=== PATIENT | female | born 1945 | race Caucasian/White ===

== ENCOUNTER → 2019-09-27 10:55 | Outpatient (BNVA) | payer MEDICARE, MEDICAID, SELFPAY | PROVIDERS: Family Provider Registered Nurse; Visit Provider Registered Nurse | DX: I10 Essential (primary) hypertension (principal); E78.5 Hyperlipidemia, unspecified | CPT/HCPCS: 80053; 80061; 81000; 84443; 85025 ==

== ENCOUNTER → 2019-09-29 09:25 | Outpatient (BNVA) | payer MEDICARE, MEDICAID, SELFPAY | PROVIDERS: Family Provider Registered Nurse; Visit Provider Registered Nurse | DX: R31.9 Hematuria, unspecified (principal) | CPT/HCPCS: 80053; 87077; 87086; 87186 ==

== ENCOUNTER → 2019-09-30 14:19 | Outpatient (BNVA) | payer MEDICARE, MEDICAID, SELFPAY | PROVIDERS: Family Provider Registered Nurse; Visit Provider Registered Nurse | DX: R31.9 Hematuria, unspecified (principal) | CPT/HCPCS: 88112 ==

== ENCOUNTER 2019-10-04 07:56 | Outpatient (CLI) | payer MEDICARE, MEDICAID, SELFPAY ==
--- NOTE | 2019-10-04 08:00 | USCV_ITS ---
Stan Shruthi Age: 73 Gender: F : 1945 Exam Date: 10/04/2019 08:07 Ordering Phys: Karissa Denton MD ([email or web address]) Technologist: Laura Patel [place] [facility] [place]: STENOSIS Risk Factors: Previous Vascular Surgery: Right Brachial BP: / Left Brachial BP: / Right Left Velocity (cm/s) Spectral Plaque Velocity (cm/s) Spectral Plaque Syst/Diast Broadening Syst/Diast Broadening 79.40/ 8.80 Prox CCA 73.70 / 7.90 47.40/ 7.00 Mid CCA 65.10 / 8.90 39.60/ 11.70 Distal CCA 39.60 / 9.60 111.10/17.30 Prox ICA 47.10 / 12.80 143.20/17.30 Mid ICA 48.20 / 12.80 81.80/ 13.20 Distal ICA 59.80 / 11.50 128.60 ECA 106.00 3.02 ICA/CCA 0.92 Antegrade Vertebral Antegrade 33.80/ 7.00 cm/s 49.00/ 9.20 cm/s Tri Subclavian Bi 103.5 102.6 0 0 FINDINGS Moderate to heavy heterogeneous plaques at the right bifurcation and proximal internal carotid artery Moderate heterogeneous plaques of the left bifurcation and proximal internal carotid artery Intimal thickening and minimal plaques in the common carotid arteries bilaterally. Antegrade flow in the vertebral arteries bilaterally. Normal Doppler flow velocities in the external carotid arteries bilaterally CONCLUSIONS Moderate to heavy heterogeneous plaques at the right bifurcation and proximal internal carotid arterywith velocity elevation consistent with 50-79% stenosis. Moderate heterogeneous plaques at the left bifurcation and proximal internal carotid artery Compared to the previous study from 07/16/2018, there may not be a significant change Dr Madalyn Alegria MD [facility] (Electronically Signed) Final Date: 04 Oct 2019 19:19 S
== END 2019-10-04 07:57 | disposition home or self-care (01) ==
PROVIDERS: PCP Registered Nurse; Visit Provider Internal Medicine Cardiovascular Disease
DX: I65.23 Occlusion and stenosis of bilateral carotid arteries (principal)
CPT/HCPCS: 93880

== ENCOUNTER → 2019-10-07 09:06 | Outpatient (BNVA) | payer MEDICARE, MEDICAID, SELFPAY | PROVIDERS: PCP Registered Nurse; Visit Provider Registered Nurse | DX: R31.0 Gross hematuria (principal); N39.0 Urinary tract infection, site not specified; A49.9 Bacterial infection, unspecified; I10 Essential (primary) hypertension | CPT/HCPCS: 81000 ==

== ENCOUNTER 2019-10-13 10:03 | Outpatient (CLI) | payer MEDICARE, MEDICAID, SELFPAY ==
[2019-10-13] MEDS: iohexol 350 mg/mL 100 mL Btl IV (10:37)
--- NOTE | 2019-10-13 11:00 | CT_ITS ---
WS: [id number] CTA NECK TECHNIQUE: Contrast enhanced CTA of the neck with coronal and sagittal reformatted images and maximum intensity projection (MIP) images. NASCET criteria utilized. CLINICAL INFORMATION: Abnormal Carotid US COMPARISON: Ultrasound October 04, 2019 DLP: 894.[address] scans at [facility] use at least one of these dose optimization techniques: automat ed exposure control; mA and/or kV adjustment per patient size (includes targeted exams where dose is matched to clinical indication); or iterative reconstruction. FINDINGS: RIGHT: Right common carotid artery is patent. Moderate atheromatous disease right carotid bulb extend ing into the ICA with right proximal ICA stenosis measuring approximately 52%. Calcified eccentric at heromatous plaque. Right ICA is patent to the skull base. LEFT: Left common carotid artery is patent. Mild calcified atheromatous disease left carotid bulb ext ending into the ICA with no flow-limiting stenosis. Left ICA is patent to the skull base. Left ECA is patent. Both vertebral arteries are patent. Right dominant vertebral artery. Basilar artery is patent. Normal vascularity to the BUNDLE PACKER territory bilaterally. Both ICAs are patent at the skull base. Cavernous carotid calcification. Normal vascularity to the AC A and proximal MCA territory where visualized. Lung apices are well aerated. Prior sternotomy. Thyroi d gland appears normal. Normal parapharyngeal fat. Parotid glands are normal in appearance. Normal manriquez bmandibular glands. Supraglottic and glottic airway are patent. Moderate spondylitic changes cervical spine. CT/CT angio neck [id number] IMPRESSION: 1. Right ICA stenosis measuring 52%. 2. No significant left ICA stenosis. 3. Proximal [place] of Baez appears normal. 4. Right dominant vertebral artery. Smaller but patent left vertebral artery.
== END 2019-10-13 10:04 | disposition home or self-care (01) ==
LOC: RADWPI 10:10
PROVIDERS: PCP Registered Nurse; Visit Provider Internal Medicine Cardiovascular Disease
DX: I77.9 Disorder of arteries and arterioles, unspecified (principal); I65.21 Occlusion and stenosis of right carotid artery
CPT/HCPCS: 70498; Q9967

== ENCOUNTER → 2020-02-22 14:47 | Outpatient (BNVA) | payer MEDICARE, MEDICAID, SELFPAY | PROVIDERS: PCP Registered Nurse; Visit Provider Registered Nurse | DX: R10.2 Pelvic and perineal pain (principal); M25.551 Pain in right hip | CPT/HCPCS: 81000 ==

== ENCOUNTER 2020-03-12 10:31 | Outpatient (CLI) | payer MEDICARE, MEDICAID, SELFPAY ==
--- NOTE | 2020-03-12 11:00 | MR_ITS ---
WS: [id number] Pelvis and RIGHT hip MRI. HISTORY: Worsening and persistent RIGHT hip pain. Multiplanar, multisequence imaging is performed. No marrow edema or acute fractures. No significant joint effusion at either hip. SI joints are symmet mendez bilaterally with no erosions. Mild narrowing of the hip joints with small osteophytic moderate ri dging. There is slight loss of the cartilage. Very slight increased T2 signal in the labrum over the superior lateral RIGHT hip suspicious for a labral tear. Muscles of the pelvis are symmetric. No muscle edema. No bursal distention over the greater trochante rs. No ascites. MR/MR hip RT wo con* [id number] IMPRESSION: 1. 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 2. Tiny amount of increased signal in the labrum over the superior and lateral RIGHT hip suspicious for labral tear. 3. No fracture.
== END 2020-03-12 10:32 | disposition home or self-care (01) ==
LOC: RADSHAW 10:39
PROVIDERS: PCP Registered Nurse; Visit Provider Registered Nurse
DX: M16.0 Bilateral primary osteoarthritis of hip (principal)
CPT/HCPCS: 73721

== ENCOUNTER → 2020-03-26 08:52 | Outpatient (BNVA) | payer MEDICARE, MEDICAID, SELFPAY | PROVIDERS: PCP Registered Nurse; Referring Provider Registered Nurse; Visit Provider Specialist | DX: M25.551 Pain in right hip (principal) | CPT/HCPCS: 73502 ==

== ENCOUNTER → 2020-04-11 10:12 | Outpatient (BNVA) | payer OTHER, MEDICARE, MEDICAID, SELFPAY | PROVIDERS: PCP Registered Nurse; Referring Provider Specialist; Visit Provider Anesthesiology Pain Medicine | DX: M51.16 Intervertebral disc disorders with radiculopathy, lumbar region (principal); M47.816 Spondylosis without myelopathy or radiculopathy, lumbar region; M25.551 Pain in right hip; M54.9 Dorsalgia, unspecified | CPT/HCPCS: 99204 ==

== ENCOUNTER 2020-04-24 15:31 | Outpatient (CLI) | payer MEDICARE, MEDICAID, SELFPAY ==
--- NOTE | 2020-04-24 15:38 | MR_ITS ---
WS: [id number] MRI LUMBAR SPINE NONCONTRAST TECHNIQUE: Sagittal T1, T2 and STIR imaging. Axial T1 and T2 imaging. CLINICAL INFORMATION: RADICULOPATHY, LUMBAR REGION COMPARISON: MRI July 09, 2015 FINDINGS: Mild lumbar curve. No acute compression fractures. Chronic anterior wedging at T11 and T12. Pedicle s crew fixation L4-5 with interbody fusion graft. L1-L2: Normal. L2-L3: Mild disc bulging with moderate central canal stenosis. Moderate facet arthropathy. Mild bilat eral foraminal narrowing. Central canal stenosis has progressed compared to previous. L3-L4: Mild disc bulging with moderate central canal stenosis. Mild facet arthropathy with ligamentum flavum hypertrophy. Right subarticular disc protrusion impinges the traversing right L4 nerve root. Right eccentric disc bulging with moderate to severe right foraminal narrowing. Impingement on the ex iting right L3 nerve root. Mild left foraminal narrowing. L4-L5: Pedicle screw fixation with interbody fusion. Spinal canal and foramen are patent. L5-S1: Pedicle screw fixation with slight effacement of ventral thecal sac. Mild left greater than ri ght foraminal narrowing. Moderate facet arthropathy. Visualized pelvic bony structures: Normal. Paravertebral soft tissues: Normal. MR/MR lumbar spine wo con* [id number] IMPRESSION: 1. Mild lumbar curve. No acute compression. 2. Moderate central canal stenosis L2-L3 and L3-L4 progressed since the prior examination. 3. Right subarticular disc protrusion L3-4 progressed compared to previous. Im pingement traversing right L4 nerve root with moderate to severe right foramina l narrowing. Impingement on the exiting right L3 nerve root. 4. Pedicle screw fixation L4-5 with interbody fusion graft. This is new from p vivian. Trace anterolisthesis L4 on L5. 5. Mild bilateral L2-3 and left L5-S1 foraminal narrowing.
--- NOTE | 2020-04-24 16:00 | XR_ITS ---
WS: [id number] LUMBAR SPINE FLEXION AND EXTENSION TECHNIQUE: 3 views of the lumbar spine: Lateral neutral, flexion, and extension views. CLINICAL INFORMATION: M47.816 - Spondylosis without myelopathy or radiculopathy, lumbar region COMPARISON: None. FINDINGS: Prior postoperative changes pedicle screw fixation L4-5 with interbody fusion graft. Slight anterolis thesis L4 on L5 measuring 3.7 mm. This increases to 6 mm in flexion and decreases slightly in extensi on.Chronic anterior wedging lower thoracic spine at T10-T12. Aortic calcification. XR/XR lumbar spine f/e only [id number] IMPRESSION: 1. Prior postoperative changes pedicle screw fixation L4-5 with interbody fusi on graft. 2. Slight anterolisthesis L4 on L5 measuring 3.7 mm in neutral with mild flexi on instability. 3. Chronic appearing anterior wedging in the lower thoracic spine.
== END 2020-04-24 15:32 | disposition home or self-care (01) ==
LOC: RADWPI 15:35
PROVIDERS: PCP Registered Nurse; Visit Provider Anesthesiology Pain Medicine
DX: M47.816 Spondylosis without myelopathy or radiculopathy, lumbar region (principal); M48.54XA Collapsed vertebra, not elsewhere classified, thoracic region, initial encounter for fracture
CPT/HCPCS: 72120; 72148

== ENCOUNTER → 2020-04-30 08:43 | Outpatient (BNVA) | payer MEDICARE, MEDICAID, SELFPAY | PROVIDERS: PCP Registered Nurse; Visit Provider Specialist | DX: M16.0 Bilateral primary osteoarthritis of hip (principal); M51.16 Intervertebral disc disorders with radiculopathy, lumbar region; G89.29 Other chronic pain; G62.9 Polyneuropathy, unspecified | CPT/HCPCS: 95885; 95909; G0463 ==

== ENCOUNTER → 2020-05-14 09:32 | Outpatient (BNVA) | payer OTHER, MEDICARE, MEDICAID, SELFPAY | PROVIDERS: PCP Registered Nurse; Visit Provider Anesthesiology Pain Medicine | DX: M54.9 Dorsalgia, unspecified (principal); M25.551 Pain in right hip; M51.16 Intervertebral disc disorders with radiculopathy, lumbar region | CPT/HCPCS: 99214 ==

== ENCOUNTER → 2020-06-06 12:43 | Outpatient (BNVA) | payer OTHER, MEDICARE, MEDICAID, SELFPAY | PROVIDERS: PCP Registered Nurse; Visit Provider Anesthesiology Pain Medicine | DX: M51.16 Intervertebral disc disorders with radiculopathy, lumbar region (principal); M54.9 Dorsalgia, unspecified | CPT/HCPCS: 64483; 64484; J1100; J3490 ==

== ENCOUNTER → 2020-06-21 13:15 | Outpatient (BNVA) | payer MEDICARE, MEDICAID, SELFPAY | PROVIDERS: PCP Registered Nurse; Visit Provider Anesthesiology Pain Medicine | DX: M51.16 Intervertebral disc disorders with radiculopathy, lumbar region (principal); M25.551 Pain in right hip; M54.9 Dorsalgia, unspecified | CPT/HCPCS: 99213 ==

== ENCOUNTER → 2020-07-11 12:39 | Outpatient (BNVA) | payer OTHER, SELFPAY | PROVIDERS: PCP Registered Nurse; Visit Provider Anesthesiology Pain Medicine | DX: M51.16 Intervertebral disc disorders with radiculopathy, lumbar region (principal); M54.9 Dorsalgia, unspecified | CPT/HCPCS: 64483; 64484; J1100; J3490 ==

== ENCOUNTER → 2020-07-25 10:50 | Outpatient (BNVA) | payer MEDICARE, MEDICAID, SELFPAY | PROVIDERS: PCP Registered Nurse; Visit Provider Anesthesiology Pain Medicine | DX: G89.29 Other chronic pain (principal); M51.16 Intervertebral disc disorders with radiculopathy, lumbar region; M54.9 Dorsalgia, unspecified; M25.551 Pain in right hip | CPT/HCPCS: 99213; 99214 ==

== ENCOUNTER → 2020-08-15 10:16 | Outpatient (BNVA) | payer MEDICARE, MEDICAID, SELFPAY | PROVIDERS: PCP Registered Nurse; Visit Provider Registered Nurse | DX: E53.8 Deficiency of other specified B group vitamins (principal); I10 Essential (primary) hypertension; R53.1 Weakness; E03.9 Hypothyroidism, unspecified; E55.9 Vitamin D deficiency, unspecified | CPT/HCPCS: 80053; 82306; 82607; 84443; 85025 ==

== ENCOUNTER → 2020-09-19 10:46 | Outpatient (BNVA) | payer OTHER, MEDICARE, MEDICAID, SELFPAY | PROVIDERS: PCP Registered Nurse; Visit Provider Anesthesiology Pain Medicine | DX: M54.9 Dorsalgia, unspecified (principal); M25.551 Pain in right hip; M51.16 Intervertebral disc disorders with radiculopathy, lumbar region | CPT/HCPCS: 99213 ==

== ENCOUNTER 2021-02-20 14:19 | Outpatient (CLI) | payer MEDICARE, MEDICAID, SELFPAY ==
--- NOTE | 2021-02-20 14:15 | USCV_ITS ---
Shruthi Pierce Age: 75 Gender: F : 1945 Exam Date: 02/20/2021 14:14 Ordering Phys: Lexi Arechiga FACILITY MECHANIC FACILITY MECHANIC Technologist: Jose Martin Singer Exam Location: [facility] [place] Indication: PAD, leg weakness RIGHT LEFT Brachial 76.00 mmHg Brachial 176.00 mmHg Pressure (mmHg) Waveform Pressure (mmHg) Waveform 36.00 POLICE OFFICER BOOKING 186.00 197.00 DPA 184.00 1.12 Ankle/Brachial Index 1.05 Post-Exercise Ankle Brachial Index 133.00 124.00 Pre-Exercise Toe Pressure 0.70 Pre-Exercise Toe/Brachial Index 0.76 FINDINGS Normal resting ABIs bilaterally Normal resting TBIs bilaterally CONCLUSIONS No significant arterial obstruction, based on the above findings. Dr Madalyn Alegria MD [facility] (Electronically Signed) Final Date: 20 February 2021 23:52 S
== END 2021-02-20 14:20 | disposition home or self-care (01) ==
LOC: US 14:21
PROVIDERS: PCP Registered Nurse; Visit Provider Registered Nurse
DX: R29.898 Other symptoms and signs involving the musculoskeletal system (principal); I73.9 Peripheral vascular disease, unspecified; R53.1 Weakness
CPT/HCPCS: 93922

== ENCOUNTER → 2021-02-27 09:54 | Outpatient (BNVA) | payer MEDICARE, MEDICAID, SELFPAY | PROVIDERS: PCP Registered Nurse; Visit Provider Registered Nurse | DX: Z20.822 Contact with and (suspected) exposure to COVID-19 (principal); J32.9 Chronic sinusitis, unspecified | CPT/HCPCS: 87635 ==

== ENCOUNTER → 2021-04-23 14:04 | Outpatient (BNVA) | payer MEDICARE, MEDICAID, SELFPAY | PROVIDERS: PCP Registered Nurse; Visit Provider Registered Nurse | DX: I10 Essential (primary) hypertension (principal); E78.5 Hyperlipidemia, unspecified | CPT/HCPCS: 80053; 80061; 85025 ==

== ENCOUNTER → 2021-05-06 09:08 | Outpatient (BNVA) | payer MEDICARE, MEDICAID, SELFPAY | PROVIDERS: PCP Registered Nurse; Visit Provider Registered Nurse | DX: R73.9 Hyperglycemia, unspecified (principal); R73.09 Other abnormal glucose | CPT/HCPCS: 83036 ==

== ENCOUNTER → 2021-07-24 09:21 | Outpatient (BNVA) | payer MEDICARE, MEDICAID, SELFPAY | PROVIDERS: PCP Registered Nurse; Visit Provider Registered Nurse | DX: E11.9 Type 2 diabetes mellitus without complications (principal) | CPT/HCPCS: 83036 ==

== ENCOUNTER 2021-10-09 12:36 | Outpatient (CLI) | payer MEDICARE, MEDICAID, SELFPAY ==
--- NOTE | 2021-10-09 14:15 | USCV_ITS ---
Shruthi Pierce Age: 75 Gender: F : 1945 Exam Date: 10/09/2021 13:01 Ordering Phys: Karissa Denton MD ([email or web address]) Technologist: Exam Location[place] [facility] [place]ication: cca disease Risk Factors: Previous Vascular Surgery: Right Brachial BP: / Left Brachial BP: / Right Left Velocity (cm/s) Spectral Plaque Velocity (cm/s) Spectral Plaque Syst/Diast Broadening Syst/Diast Broadening 78.85/ 6.60 Prox CCA 72.30 / 13.10 82.15/ 7.70 Mid CCA 78.90 / 7.90 62.85/ 7.70 Hetro Distal CCA 98.60 / 13.10 Hetro 214.20/27.30 Pedrito Prox ICA 96.00 / 17.10 Pedrito 227.90/36.50 Pedrito Mid ICA 123.60/ 18.40 Hetro 180.00/18.20 Distal ICA 128.80/ 21.00 205.10 ECA 111.70 2.87 ICA/CCA 1.31 Antegrade Vertebral Antegrade 104.8/ 6.80 cm/s 67.00/ 7.90 cm/s 0 Bi Subclavian Bi 168.6 124.9 0 0 FINDINGS Moderate to heavy heterogeneous irregular plaques at the right bifurcation and internal carotid artery. Moderate plaques of the left bifurcation and L carotid artery. Antegrade flow in the vertebral arteries bilaterally. Elevated velocities in the proximal segment of the external carotid artery on the right side. Normal/near normal Doppler velocities in the subclavian arteries bilaterally CONCLUSIONS Moderate to heavy heterogeneous irregular plaques at the right bifurcation and internal carotid artery with a Doppler velocity elevations, suggesting 50 to 69% stenosis.(based on SRU criteria) Moderate heterogeneous plaques at he left bifurcation and internal carotid artery with a Doppler velocity elevations, suggesting less than 50% stenosis. Elevated velocity in the external carotid artery on the right side, suggestive of hemodynamically significant stenosis. No significant stenosis in the vertebral or subclavian arteries, based on the above findings. Compared to the study from 10/04/2019, there may not be a significant change Dr Madalyn Alegria MD [facility] (Electronically Signed) Final Date: 10 Oct 2021 08:24 S
== END 2021-10-09 12:37 | disposition home or self-care (01) ==
LOC: RAD 12:39
PROVIDERS: PCP Registered Nurse; Visit Provider Internal Medicine Cardiovascular Disease
DX: I65.23 Occlusion and stenosis of bilateral carotid arteries (principal)
CPT/HCPCS: 93880

== ENCOUNTER → 2022-01-22 11:19 | Outpatient (BNVA) | payer MEDICARE, MEDICAID, SELFPAY | PROVIDERS: PCP Registered Nurse; Visit Provider Registered Nurse | DX: E11.9 Type 2 diabetes mellitus without complications (principal); R00.1 Bradycardia, unspecified; I10 Essential (primary) hypertension; Z71.3 Dietary counseling and surveillance | CPT/HCPCS: 80053; 80061; 83036 ==

== ENCOUNTER → 2022-03-05 10:28 | Outpatient (BNVA) | payer MEDICARE, MEDICAID, SELFPAY | PROVIDERS: PCP Registered Nurse; Visit Provider Internal Medicine Cardiovascular Disease | DX: I10 Essential (primary) hypertension (principal); R00.1 Bradycardia, unspecified; I25.10 Atherosclerotic heart disease of native coronary artery without angina pectoris; E78.2 Mixed hyperlipidemia; I65.23 Occlusion and stenosis of bilateral carotid arteries; Z95.1 Presence of aortocoronary bypass graft | CPT/HCPCS: 99214 ==

== ENCOUNTER 2022-06-30 09:08 | Outpatient (CLI) | payer MEDICARE, MEDICAID, SELFPAY ==
--- NOTE | 2022-06-30 09:35 | MR_ITS ---
WS: [id number] MRI LUMBAR SPINE NONCONTRAST TECHNIQUE: Sagittal T1, T2 and STIR imaging. Axial T1 and T2 imaging. CLINICAL INFORMATION: LUMBAR PAIN, INCREASED FALLS, LEG WEAKNESS COMPARISON: MRI April 24, 2020 FINDINGS: Mild lumbar curve. No acute compression. Pedicle screw fixation L4-L5 with interbody fusion graft. Sl ight anterolisthesis L2 on L3. Mild disc bulging L2-L3 L3-L4 and L5-S1. No acute compression fracture s. L1-L2: Mild annular bulging. Mild facet arthropathy. Spinal canal and foramen are patent. L2-L3: Slight anterolisthesis L2 on L3. Disc bulging in combination with facet arthropathy results in severe central canal stenosis. This is progressed compared to 2020. Moderate facet arthropathy. Mild RIGHT greater than LEFT foraminal narrowing. L3-L4: Mild disc bulging in combination with facet arthropathy results in moderate to severe central canal stenosis. Impingement traversing L4 nerve roots bilaterally. This appears slightly progressed c ompared to previous. Moderate RIGHT and mild LEFT foraminal narrowing. L4-L5: Prior postoperative changes pedicle screw fixation with interbody fusion. Slight anterolisthes is L4 on L5. Osteophytic ridging. LEFT hemilaminectomy. Spinal canal and foramen are patent. L5-S1: Mild disc bulging with osteophytic ridging. Slight impingement traversing LEFT greater than RI GHT S1 nerve roots. Mild LEFT and no significant RIGHT foraminal narrowing. Mild facet arthropathy. Tiny central disc protrusions in the cervical spine helper driver imaging at C3-C4 and C4-C5 with slight cont act of the cervical cord. Visualized pelvic bony structures: Normal. Paravertebral soft tissues: Normal. MR/MR lumbar spine wo con* [id number] IMPRESSION: 1. Mild lumbar curve. No acute compression. Moderate 2. Moderate to severe central canal stenosis L2-L3 and L3-L4 due to disc bulgi ng with facet arthropathy and ligamentum flavum hypertrophy. This is progressed slightly compared to previous. 3. Moderate RIGHT L3-L4 foraminal narrowing. 4. Prior LEFT hemilaminectomy L4-L5 with pedicle screw fixation with interbody fusion graft. 5. Mild annular bulging L5-S1 with slight contact of the LEFT greater than RIG HT S1 nerve roots. 6. Mild bilateral L2-L3 RIGHT greater than LEFT, and LEFT L5-S1 foraminal narr owing.
== END 2022-06-30 09:09 | disposition home or self-care (01) ==
PROVIDERS: PCP Registered Nurse; Visit Provider Registered Nurse
DX: M51.16 Intervertebral disc disorders with radiculopathy, lumbar region (principal); M48.061 Spinal stenosis, lumbar region without neurogenic claudication; M47.816 Spondylosis without myelopathy or radiculopathy, lumbar region; M51.27 Other intervertebral disc displacement, lumbosacral region
CPT/HCPCS: 72148

== ENCOUNTER → 2022-07-17 13:29 | Outpatient (BNVA) | payer MEDICARE, MEDICAID, SELFPAY | PROVIDERS: PCP Registered Nurse; Referring Provider Registered Nurse; Visit Provider Orthopaedic Surgery | DX: M48.062 Spinal stenosis, lumbar region with neurogenic claudication (principal); Z98.1 Arthrodesis status | CPT/HCPCS: 72110; 72120; 99204 ==

== ENCOUNTER 2022-08-25 08:45 | Day surgery (SDC) | payer MEDICARE, MEDICAID, SELFPAY ==
[2022-08-22 12:54] VITALS: BMI 26.2
--- NOTE | 2022-08-22 13:05 | ECG_ITS ---
[facility] Test Date: 2022-08-22 Pat Name: Shruthi Pierce Department: Room: Gender: Female Certified Drug Counselor: : 1945 Requested By: Luis Proctor Order Number: [id number] Papo MD: Madalyn Alegria M.D. Measurements Intervals [place] Rate: 64 P: -12 WY: 198 QRS: 20 QRSD: 139 T: 5 QT: 420 QTc: 436 Interpretive Statements SINUS RHYTHM INTRAVENTRICULAR CONDUCTION DELAY [130+ ms QRS DURATION] Compared to ECG 01/04/2018 13:20:20 Intraventricular conduction delay now present Sinus bradycardia no longer present Right bundle-branch block no longer present Myocardial infarct finding no longer present Electronically Signed On 08-22-2022 21:40:09 CDT by Madalyn Alegria M.D. [email or web address] [email or web address] Comedy Networksum[id number]
[2022-08-22 13:42] LABS: Basophils # 0.1 10^3/uL (0.0-0.1); Eosinophils # 0.2 10^3/uL (0.0-0.8); Eosinophils % 3.1 %; Hematocrit 39.8 % (37.0-47.0); Hemoglobin 12.6 g/dL (11.5-15.3); Lymphocytes # 1.6 10^3/uL (0.8-4.8); Lymphocytes % 26.3 %; Mean Corpuscular HGB Conc 31.7 g/dL (30.0-36.0); Mean Corpuscular Hemoglobin 29.6 pg (28.0-34.0); Mean Corpuscular Volume 93.6 fl (81-99); Mean Platelet Volume 8.8 fL (7.4-10.4); Monocytes # 0.8 10^3/uL (0.2-0.9); Monocytes % 12.3 %; Neutrophils # 3.47 10^3/uL (1.8-7.7); Nucleated Red Blood Cells % 0 %; Platelet Count 214 10^3/cmm (130-400); Red Blood Count 4.25 10^6/uL (4.1-5.3); Red Cell Distribution Width 13.8 % (12.1-15.1); White Blood Count 6.1 10^3/uL (4.0-10.0)
[2022-08-22 13:58] LABS: Anion Gap 13.3 (5-19); Blood Urea Nitrogen 17 mg/dL (8-23); Calcium 8.8 mg/dL (8.5-10.5); Carbon Dioxide 25 mmol/L (22-29); Chloride 107 mmol/L (98-107); Glucose 126 mg/dL (65-115); Osmolality Calculated 295 mOsm/kg (285-295); Potassium 4.3 mmol/L (3.5-5.1); Sodium 141 mmol/L (136-145)
--- NOTE | 2022-08-22 14:13 | P.ANESASSM_ITS ---
Pre-Anesthetic Assessment Height/Weight: Height 1.7 m Weight 75.75 kg Operation Date: 08/25/22 10:45 Proposed Procedures p B Lumbar Spine Decompression:L3/4 04423, M48.062(Not Applicable) - Jameschristi Ness Caron, DO Social No alcohol and No tobacco Exam alert, oriented x 3, clear to auscultation bilaterally and regular rate & rhythm Airway Submandibular: within normal limits Cervical ROM: within normal limits Mallampati: Class II History/ROS No significant complaints Pulmonary Exertional Dyspnea CV/HEM Coronary Artery Disease and Hypertension None reported Hepatic None reported GI None reported Metabolic Hyperlipidemia [facility] [place] Osteoarthritis/DJD Neuropsych Anxiety and Depression Anesthetic Plan ASA status: 3 Anesthesia: General Medications/Allergies Home Medications Medication Instructions Recorded Confirmed Last Taken Type hydrochlorothiazide 25 mg tablet 25 mg PO DAILY #90 tabs 01/13/22 08/22/22 08/22/22 Rx acetaminophen 325 mg tablet 325 mg PO QID PRN Pain 03/05/22 08/22/22 08/19/22 History aspirin 81 mg tablet,delayed 81 mg PO DAILY 03/05/22 07/17/22 Unknown History release (Adult Low Dose Aspirin) garlic 300 mg capsule 300 mg PO DAILY 03/05/22 08/22/22 08/20/22 History potassium gluconate 600 mg (99 mg) 600 mg PO DAILY 03/05/22 08/22/22 Unknown History tablet rosuvastatin 10 mg tablet 10 mg PO DAILY #30 tabs 03/07/22 08/22/22 08/22/22 Rx rosuvastatin 20 mg tablet 20 mg PO DAILY #30 tabs 03/07/22 08/22/22 08/22/22 Rx tramadol 50 mg tablet 50 mg PO DAILY pain 30 days #30 06/02/22 08/22/22 Unknown Rx tabs trazodone 50 mg tablet See Rx Instructions .Route 06/05/22 08/22/22 Unknown Rx .COMPLEX #90 tabs olmesartan 20 mg tablet 20 mg PO DAILY 90 days #90 tabs 06/24/22 08/22/22 08/22/22 Rx benzonatate 100 mg capsule 100 mg PO BID PRN cough 10 days 08/06/22 08/22/22 Unknown Rx #20 caps Allergies Allergy/AdvReac Type Severity Reaction Status Date / Time No Known Allergies Allergy Verified 08/22/22 12:49 [facility] Anesthesia Medical History Chronic radicular lumbar pain Coronary artery disease Generalized weakness Hyperlipidemia Hypertension Pain of right hip Surgical History Hx of lumbosacral spine surgery has metal plates in lower lumbar S/P CABG (coronary artery bypass graft) 2016 or 2017 Social History Smoking and tobacco status: never smoked Second hand smoke exposure: No Alcohol intake: never Adopted: No Caregiver/support person: No Lives independently: Yes Marital status: / Data Anesthesia 08/22/22 13:30 08/22/22 13:30 Short CBC 08/22/22 Range/Units 13:30 WBC 6.1 (4.0-10.0) 10^3/uL Hgb 12.6 (11.5-15.3) g/dL Hct 39.8 (37.0-47.0) % MCV 93.6 (81-99) fl Plt Count 214 (130-400) 10^3/cmm Neut % (Auto) 57.0 % Neut # (Auto) 3.47 (1.8-7.7) 10^3/uL BMP 08/22/22 13:30 Sodium 141 Potassium 4.3 Chloride 107 Carbon Dioxide 25 BUN 17 Creatinine 0.7 Glucose 126 H Calcium 8.8 Cardiac Studies: No Data to Display
[2022-08-25] VITALS (7 sets, daily range): BP systolic 119–199; BP diastolic 54–81; PULSE 69–100; RESP 16–18; TEMP 36.4; O2SAT 91–99
--- NOTE | 2022-08-25 | XR_ITS ---
WS: [id number] EXAMINATION: XR lumbar spine 1V 34408 L-SPINE : 1 views REASON FOR EXAM: LAMINECTOMY COMPARISON: 07/17/2022 ORDER DATE: 08/25/2022 12:00 AM FINDINGS: The single view demonstrates surgical instrumentation near the level of the previous surgical instrum entation is again visualized on 07/17/2022. XR/XR lumbar spine 1V 96195 IMPRESSION: Total fluoroscopy time 8 seconds
[2022-08-25] MEDS: sodium chloride 0.9% 1,000 ML 30 ML IV (09:19)
--- NOTE | 2022-08-25 10:15 | P.ANESUD_ITS ---
Pre-Anesthetic Update Pre-Anesthetic Assessment: Date of Surgery/Procedure: 08/25/22 Preop Elvira gnosis: Lumbar stenosis with neurogenic claudication Proposed Procedure: Operation Date: 08/25/22 10:55 Proposed Procedures p B Lumbar Spine Decompression:L3/4 10937, M48.062(Not Applicable) - James Ocasio, DO Any changes to Pre-Anesthetic Assessment?: No Last Intake: Intake Last Liquid Date 08/24/22 Last Liquid Time 16:00 Last Solid Date 08/24/22 Last Solid Time 16:00 Vitals: Temperature 97.6 F 08/25/22 09:06 Temperature Source Temporal Artery S can 08/25/22 09:06 Pulse Rate 69 08/25/22 09:06 Respiratory Rate 18 08/25/22 09:06 Blood Pressure 171/81 08/25/22 09:06 Blood Pressure Kath n 111 08/25/22 09:06 Pulse Oximetry 99 08/25/22 09:06 Oxygen Delivery Me thod 08/25/22 09:06 Exam: Pre-Anes Outpt Exam: alert, oriented x 3, clear to auscultation bilaterally and regular rate & rhythm Cardiac Studies: No Data to Display
--- NOTE | 2022-08-25 11:12 | P.HP_ITS ---
Providers/Chief Complaint Primary Care Provider: SAM Mcqueen Chief Complaint: L3/4 Decompression 39799 M48.062 History of Present Illness Shruthi Pierce is a 76 year old female low back pain. She reports lower back pain that has been on going for several years. She states is has been more severe within the last year. She reports lower back pain that radiates into her right lateral leg. She reports numbness and tingling sensations in her right foot. She reports weakness in her left and right leg. She states her pain is worse at night, while laying in bed. She reports a surgical history of a lumbar fusion, around 6-7 years ago, by Dr. Gregg at [facility] in [place]. She has a recent MRI and is here today to go over results and further treatment plan. Chief Complaint: low back pain Onset: years Duration: constant Characteristics: aching, radiating Severity: 10/25 Location: lumbar Radiating symptoms: RLE Aggravating factors: laying, sitting and standing Alleviating factors: none Neuro deficits: Reports numbness, tingling, weakness. Denies? incontinence of bowel/bladder, saddle anesthesia. Prior tx:?lumbar fusion 6-7 years ago ? Review of Systems General: Reports: 10 or more systems reviewed and unremarkable except in HPI and below Const: Denies: fever(s), chills or body aches Card: Denies: chest pain or orthopnea Resp: Denies: dyspnea, productive cough or wheezing GI: Denies: abdominal pain, nausea or vomiting : Denies: flank pain Musc: Reports: back pain and extremity pain (RLE) Skin/Breast: Denies: changes in skin color or dry skin Neuro: Denies: numbness in extremities or weakness in extremities Psych: Denies: anxiety Endo: Denies: polyuria Sheldon/Lymph: Denies: easy bruising or easy bleeding Medications/Allergies Home Medications Medication Instructions Recorded Confirmed Last Taken Type hydrochlorothiazide 25 mg tablet 25 mg PO DAILY #90 tabs 01/13/22 08/22/22 08/23/22 Rx acetaminophen 325 mg tablet 325 mg PO QID PRN Pain 03/05/22 08/22/22 08/19/22 History aspirin 81 mg tablet,delayed 81 mg PO DAILY 03/05/22 08/25/22 08/23/22 History release (Adult Low Dose Aspirin) garlic 300 mg capsule 300 mg PO DAILY 03/05/22 08/22/22 08/23/22 History potassium gluconate 600 mg (99 mg) 600 mg PO DAILY 03/05/22 08/25/22 08/23/22 History tablet rosuvastatin 10 mg tablet 10 mg PO DAILY #30 tabs 03/07/22 08/22/22 08/23/22 Rx rosuvastatin 20 mg tablet 20 mg PO DAILY #30 tabs 03/07/22 08/22/22 08/22/22 Rx tramadol 50 mg tablet 50 mg PO DAILY pain 30 days #30 06/02/22 08/22/22 Unknown Rx tabs trazodone 50 mg tablet See Rx Instructions .Route 06/05/22 08/22/22 Unknown Rx .COMPLEX #90 tabs olmesartan 20 mg tablet 20 mg PO DAILY 90 days #90 tabs 06/24/22 08/22/22 08/23/22 Rx benzonatate 100 mg capsule 100 mg PO BID PRN cough 10 days 08/06/22 08/25/22 Unknown Rx #20 caps Allergies Allergy/AdvReac Type Severity Reaction Status Date / Time No Known Allergies Allergy Verified 08/25/22 09:14 PFSH Acute PFSH: Medical History Chronic radicular lumbar pain Coronary artery disease Generalized weakness Hyperlipidemia Hypertension Pain of right hip Surgical History Hx of lumbosacral spine surgery has metal plates in lower lumbar S/P CABG (coronary artery bypass graft) 2016 or 2017 Social History Smoking and tobacco status: never smoked Second hand smoke exposure: No Alcohol intake: never Adopted: No Caregiver/support person: No Lives independently: Yes Marital status: / Vitals/I&O/Wt Last Vital Signs Temp 97.6 F 08/25/22 09:06 Pulse 69 08/25/22 09:06 Resp 18 08/25/22 09:06 BP 171/81 08/25/22 09:06 Pulse Ox 99 08/25/22 09:06 O2 Del Method 08/25/22 09:06 Physical Exam Narrative: CONSTITUTIONAL: This is a normal patient in no acute distress. ?PSYCH: The patient is oriented to person, place and time. ?SKIN: The skin is of normal color and texture. ?NEURO: Patient is neurovascularly intact. Data 08/22/22 13:30 08/22/22 13:30 A&P Assessment and plan (1) Lumbar stenosis with neurogenic claudication: L3/4 MIS decompresion Attestations Medical Necessity Statement*: failed conservative tx Coding Level of Care Code Acute Code for [facility] Fwd Diagnoses Lumbar stenosis with neurogenic claudication M48.062
[2022-08-25] MEDS: ceFAZolin 2,000 MG in sodium chloride 0.9% (plus) 50 ML 100 MG IV (11:28)
[2022-08-25] MEDS: lidocaine-epi 2% 20 mL INJ INJECTION (11:28)
--- NOTE | 2022-08-25 12:53 | PM.OP ---
Operative Report Date of procedure: August 25, 2022 Pre-op diagnosis: Preop Diagnosis Lumbar stenosis with neurogenic claudication Post-op diagnosis: same Procedure done: 1. L3/4 laminectomy with partila facetectomy Surgeon: James Ocasio Patternmaker Apprentice Metal: none Estimated blood loss (mL): 20 Procedure: L3-4 laminectomy with partial facetectomy Patient is brought to the operative suite. After undergoing anesthesia they are placed in the prone position. All areas of impingement are well padded. Patient is then prepped and draped in the normal sterile fashion. A skin incision is made over the L3-4 level. This is confirmed under c-arm guidance. A series of dilators are passed and the tubular retractor is docked on the L3 lamina. A bovie is used to clear the soft tissue off the lamina and the L 3/4 facet joint. A high speed gabriella is then used to perform the laminectomy and take down the medial aspect of the L 3/4 facet joint. A kerrison rongeure was then used to take down the remaining lamina and smooth the edged of the laminectomy up to the point where the ligamentum flavum attaches. Attention was then brought to the medial aspect of the facet joint. The remaining medial aspect of the superior and inferior aspect of the facet joint were taken down with the kerrison from the pedicle of L3 to L 4. The facet joint had significant hypertrophy. Attention was then brought to the Ligamentum Flavum. The ligament was taken down from the lamina of L3 to L4 and out medially to the remaining facet joint. The ligament was thick. The dura was then exposed. The dura was in good repair. The L 3 nerve was then traced with a curette out the L3/4 foramen and found to be adequately decompressed. The L4 nerve was traced with a curette around the L4 pedicle. The lateral recess was opened with a kerrison helping to further decompress the L4 nerve. The tubular retractor was then tilted to the contralateral side. The bovie was used to take down the soft tissue on the spinous process. The high speed gabriella was used to take down the spinous process and then the contralateral lamina of L3. The kerrison rongeur was used to take down the remaining lamina to the point where the ligamentum flavum attached and the ligamentum flavum was taken down from L3 to L4. The kerrison rongeur was then used to reach across and take down the medial aspect of the contralateral L3/4 facet joint.The currete was used to trace the contralateral L3 nerve out the L3/4 foramen to make sure it was decompressed adequatesly and the L4 was traced around the L4 pedicle. The lateral recess was opened further with the kerrison to ensure the L4 is adequately decompressed. Wound is then irrigated copiously with saline and surgiflo is used to stop any bleeding. The tubular retractor is removed and the wound is closed with vicryl and monocryl suture. Glue is then used to protect the wound. A sterile dressing is then placed. Patient was then placed in the supine position and transferred to the PACU in stable condition.
--- NOTE | 2022-08-25 14:12 | ANE.PACU2 ---
Inpatient post-anesthesia follow up: Airway intact: Yes Vital signs: Temperature 97.5 F Pulse Rate 77 Respiratory Rate 17 Blood Pressure 136/72 Pulse Oximetry 91 Oxygen Delivery Me thod Room Air Oxygen Flow Rate 6 Fraction of Inspir ed Oxygen Hydration adequate: Yes Nausea and vomiting: No Pain level: 1 Mental status: Baseline
== END 2022-08-25 13:45 | disposition home or self-care (01) ==
PROVIDERS: Anesthesiology; PCP Registered Nurse; Visit Provider Orthopaedic Surgery
PROC: (CPT 63005; principal; 2022-08-25 10:45)
DX: M48.062 Spinal stenosis, lumbar region with neurogenic claudication (principal); I25.10 Atherosclerotic heart disease of native coronary artery without angina pectoris; E78.5 Hyperlipidemia, unspecified; I10 Essential (primary) hypertension; Z79.82 Long term (current) use of aspirin
CPT/HCPCS: 63047; 36415; 72020; 76000; 80048; 85025; 93005; J0690; J1100; J2370; J2405; J2704; J2710; J3010; J3490; J7030

== ENCOUNTER → 2022-09-09 13:29 | Outpatient (BNVA) | payer MEDICARE, MEDICAID, SELFPAY | PROVIDERS: PCP Registered Nurse; Visit Provider Orthopaedic Surgery | DX: Z47.89 Encounter for other orthopedic aftercare (principal) | CPT/HCPCS: 99024 ==

== ENCOUNTER → 2022-10-07 09:48 | Outpatient (BNVA) | payer MEDICARE, MEDICAID, SELFPAY | PROVIDERS: PCP Registered Nurse; Visit Provider Orthopaedic Surgery | DX: Z47.89 Encounter for other orthopedic aftercare (principal) | CPT/HCPCS: 99024 ==

== ENCOUNTER 2022-10-24 14:34 | Outpatient (CLI) | payer MEDICARE, MEDICAID, SELFPAY ==
--- NOTE | 2022-10-24 14:45 | XR_ITS ---
WS: [id number] Right ankle, 3 views, 10/24/2022 Clinical Data: M25.579 - Pain in unspecified ankle and joints of unspeci... Comparison: None. Findings: No fractures or dislocations are seen. The ankle mortise is normal. The talus and calcaneus are unrem arkable. There is soft tissue swelling over the lateral malleolus. There is an Achilles spur. Impress ion: 1. Negative for fracture. 2. Soft tissue swelling over lateral malleolus.
== END 2022-10-24 14:35 | disposition home or self-care (01) ==
LOC: RAD 14:38
PROVIDERS: PCP Registered Nurse; Visit Provider Registered Nurse
DX: M25.571 Pain in right ankle and joints of right foot (principal); M25.471 Effusion, right ankle
CPT/HCPCS: 73610

== ENCOUNTER → 2022-11-05 10:33 | Outpatient (BNVA) | payer MEDICARE, MEDICAID, SELFPAY | PROVIDERS: PCP Registered Nurse; Referring Provider Registered Nurse; Visit Provider Nurse Practitioner Family | DX: S82.891A Other fracture of right lower leg, initial encounter for closed fracture (principal); X58.XXXA Exposure to other specified factors, initial encounter | CPT/HCPCS: 73610; 99213 ==

== ENCOUNTER → 2022-11-11 10:12 | Outpatient (BNVA) | payer MEDICARE, MEDICAID, SELFPAY | PROVIDERS: PCP Registered Nurse; Visit Provider Orthopaedic Surgery | DX: Z48.89 Encounter for other specified surgical aftercare (principal) | CPT/HCPCS: 99024 ==

== ENCOUNTER → 2022-12-03 09:47 | Outpatient (BNVA) | payer MEDICARE, MEDICAID, SELFPAY | PROVIDERS: PCP Registered Nurse; Visit Provider Nurse Practitioner Family | DX: S82.891A Other fracture of right lower leg, initial encounter for closed fracture (principal); X58.XXXA Exposure to other specified factors, initial encounter | CPT/HCPCS: 73610; 99213 ==

== ENCOUNTER → 2022-12-31 10:13 | Outpatient (BNVA) | payer MEDICARE, MEDICAID, SELFPAY | PROVIDERS: PCP Registered Nurse; Visit Provider Nurse Practitioner Family | DX: S82.891A Other fracture of right lower leg, initial encounter for closed fracture (principal); X58.XXXA Exposure to other specified factors, initial encounter | CPT/HCPCS: 73610; 99213 ==

== ENCOUNTER → 2023-02-10 09:22 | Outpatient (BNVA) | payer MEDICARE, MEDICAID, SELFPAY | PROVIDERS: PCP Registered Nurse; Visit Provider Orthopaedic Surgery | DX: Z47.89 Encounter for other orthopedic aftercare; M54.50 Low back pain, unspecified | CPT/HCPCS: 99214 ==

== ENCOUNTER → 2023-03-04 11:06 | Outpatient (BNVA) | payer MEDICARE, MEDICAID, SELFPAY | PROVIDERS: PCP Registered Nurse; Visit Provider Internal Medicine Cardiovascular Disease | DX: I25.10 Atherosclerotic heart disease of native coronary artery without angina pectoris (principal); I10 Essential (primary) hypertension; I65.23 Occlusion and stenosis of bilateral carotid arteries; E78.2 Mixed hyperlipidemia; Z95.1 Presence of aortocoronary bypass graft | CPT/HCPCS: 36415; 80061; 80076; 83721; 99214 ==

== ENCOUNTER 2023-03-10 10:21 | Outpatient (CLI) | payer MEDICARE, MEDICAID, SELFPAY ==
--- NOTE | 2023-03-10 11:00 | MR_ITS ---
WS: [id number] MRI LUMBAR SPINE NONCONTRAST TECHNIQUE: Sagittal T1, T2 and STIR imaging. Axial T1 and T2 imaging. CLINICAL INFORMATION: lumbar pain COMPARISON: MRI 07/10 FINDINGS: Interval postoperative changes RIGHT hemilaminectomy L3-4 with spinal canal decompression Mild lumbar curve. No acute compression. Disc bulging worse at L2-L3 and L3-L4. Pedicle screw fixatio n L4-5 with laminectomy defects. L1-L2: Mild annular bulging. Spinal canal and foramen are patent. Mild facet arthropathy. L2-L3: Mild disc bulging with moderate central canal stenosis. Narrowing of the subarticular recess b ilaterally. Moderate facet arthropathy with ligamentum flavum hypertrophy. Central canal stenosis nury ears improved compared to previous but persistent. Mild bilateral foraminal narrowing. L3-L4: Mild annular bulging. RIGHT hemilaminectomy. Narrowing of the subarticular recess bilaterally. Central canal stenosis has been decompressed compared to previous. Moderate bilateral foraminal narr owing. Moderate facet arthropathy. L4-L5: Pedicle screw fixation with interbody fusion. Spinal canal and foramen are patent. Foramen are patent. L5-S1: Mild disc bulging with slight effacement of the ventral thecal sac. Slight impingement sabrina ing S1 nerve roots. Mild facet arthropathy. Mild bilateral foraminal narrowing. Visualized pelvic bony structures: Normal. Paravertebral soft tissues: Normal. Small bilateral renal cysts. IMPRESSION: 1. Interval RIGHT hemilaminectomy L3-4 with decompression of the central canal stenosis. 2. Moderate residual central canal stenosis L2-3 with impingement subarticular recess bilaterally. T his is improved compared to previous but persistent. 3. Pedicle screw fixation L4-L5 and L5-S1 with interbody fusion graft. 4. Otherwise multilevel foraminal narrowing described above.
== END 2023-03-10 10:22 | disposition home or self-care (01) ==
LOC: RAD 10:21
PROVIDERS: PCP Registered Nurse; Visit Provider Orthopaedic Surgery
DX: M48.062 Spinal stenosis, lumbar region with neurogenic claudication (principal)
CPT/HCPCS: 72148

== ENCOUNTER 2023-03-12 11:14 | Outpatient (CLI) | payer MEDICARE, MEDICAID, SELFPAY ==
--- NOTE | 2023-03-12 11:45 | USCV_ITS ---
Stan Shruthi Age: 77 Gender: F : 1945 Exam Date: 03/12/2023 11:45 Ordering Phys: Karissa Denton MD ([email or web address]) Technologist: Christina Mcdonald Exam Location: [facility] [place] Indication: RECHECK OF CCA STENOSIS Risk Factors: Unknown Previous Vascular Surgery: None Right Brachial BP: / Left Brachial BP: / Right Left Velocity (cm/s) Spectral Plaque Velocity (cm/s) Spectral Plaque Syst/Diast Broadening Syst/Diast Broadening 90.40/ 19.80 Prox CCA 74.50 / 22.90 45.40/ 10.50 Mid CCA 83.00 / 21.70 118.00/18.70 Hetro Distal CCA 111.00/ 21.70 Hetro 138.70/34.20 Hetro Prox ICA 77.80 / 21.70 Hetro 90.10/ 24.90 Mid ICA 91.90 / 23.00 93.40/ 17.10 Distal ICA 98.30 / 31.90 376.00 Hetro ECA 122.50 Hetro 3.06 ICA/CCA 1.18 Antegrade Vertebral Antegrade 39.90/ 9.70 cm/s 46.60/ 10.80 cm/s Tri Subclavian Bi 95.10 159.9 0 FINDINGS Comparison:. 10/09/22 Diffuse bilateral scattered calcified plaque and intimal thickening throughout the common carotid arteries and extending through the bifurcation. Antegrade vertebral arteries. CONCLUSIONS Right ICA stenosis 50-69%. Left ICA stenosis < 50%. No interval change in stenosis since prior exam. Dr. Daksha Giraldo DO (Electronically Signed) Final Date: 12 March 2023 13:01 S
== END 2023-03-12 11:15 | disposition home or self-care (01) ==
LOC: RAD 11:16
PROVIDERS: PCP Registered Nurse; Visit Provider Internal Medicine Cardiovascular Disease
DX: I65.23 Occlusion and stenosis of bilateral carotid arteries (principal)
CPT/HCPCS: 93880

== ENCOUNTER → 2023-04-14 12:59 | Outpatient (BNVA) | payer MEDICARE, MEDICAID, SELFPAY | PROVIDERS: PCP Registered Nurse; Visit Provider Orthopaedic Surgery | DX: Z47.89 Encounter for other orthopedic aftercare (principal); M48.062 Spinal stenosis, lumbar region with neurogenic claudication | CPT/HCPCS: 72100; 99214 ==

== ENCOUNTER → 2023-06-11 09:40 | Outpatient (BNVA) | payer MEDICARE, MEDICAID, SELFPAY | PROVIDERS: PCP Registered Nurse; Visit Provider Orthopaedic Surgery | DX: Z01.812 Encounter for preprocedural laboratory examination (principal); M48.062 Spinal stenosis, lumbar region with neurogenic claudication; Z79.899 Other long term (current) drug therapy | CPT/HCPCS: 36415; 80053; 81001; 83036; 85025; 87086; 99214 ==

== ENCOUNTER → 2023-06-18 09:10 | Outpatient (BNVA) | payer MEDICARE, MEDICAID, SELFPAY | PROVIDERS: PCP Registered Nurse; Visit Provider Family Medicine | DX: Z01.818 Encounter for other preprocedural examination (principal) | CPT/HCPCS: 81003 ==

== ENCOUNTER 2023-06-24 05:18 | Day surgery (SDC) | payer MEDICARE, MEDICAID, SELFPAY ==
[2023-06-24] VITALS (11 sets, daily range): BP systolic 118–202; BP diastolic 53–92; PULSE 63–100; RESP 13–21; TEMP 36.1–36.6; O2SAT 95–99; BMI 26.6
--- NOTE | 2023-06-24 | XR_ITS ---
WS: [id number] XR lumbar spine 1V [id number] REASON FOR EXAM: OR pic, decompression FINDINGS: Surgical device overlying the left L3-L4 disc interspace. Surgical device overlying the left L2-L3 disc space. IMPRESSION: Lumbar level localization and surgery as above.
--- NOTE | 2023-06-24 06:10 | W.PM.OPSUD ---
Surgery/Procedure H&P Update DATE OF PROCEDURE: June 24, 2023 DATE H&P PERFORMED: 06/18/23 H&P UPDATE INFORMATION: I have reviewed H&P completed within last 30 days, I have examined patient prior to procedure and No changes to prior documentation PREOP DIAGNOSIS: Lumbar stenosis with neurogenic claudication PLANNED PROCEDURE: Operation Date: 06/24/23 07:00 Proposed Procedures p Lumbar Spine Decompression Lumbar Decompression/ Bilateral standing on the left(Bilateral) - James Ocasio DO
[2023-06-24] MEDS: sodium chloride 0.9% 1,000 ML 30 ML IV (06:11)
--- NOTE | 2023-06-24 06:52 | ANES.PREANE2 ---
Pre-Anesthetic Assessment Height/Weight: Height 1.7 m Weight 77.111 kg Temp Pulse Resp BP Pulse Ox O2 Del Method 97.3 F L 64 18 179/70 98 Room Air 06/24/23 05:56 06/24/23 05:56 06/24/23 05:56 06/24/23 06:36 06/24/23 05:56 06/24/23 05:56 Preop Diagnosis: Lumbar stenosis with neurogenic claudication Operation Date: 06/24/23 07:00 Proposed Procedures p Lumbar Spine Decompression Lumbar Decompression/ Bilateral standing on the left(Bilateral) - James Ocasio DO Last intake: Intake Last Liquid Date 06/23/23 Last Liquid Time 23:30 Last Solid Date 06/23/23 Last Solid Time 23:30 Social No alcohol and No tobacco Exam alert, oriented x 3, clear to auscultation bilaterally and regular rate & rhythm Airway Submandibular: within normal limits Cervical ROM: within normal limits Mallampati: Class I Anesthetic Plan ASA status: 2 Anesthesia: MAC Medications/Allergies Home Medications Medication Instructions Recorded Confirmed Last Taken Type aspirin 81 mg tablet,delayed 81 mg PO DAILY 03/05/22 06/23/23 06/16/23 History release (Adult Low Dose Aspirin) rosuvastatin 10 mg tablet 10 mg PO DAILY #30 tabs 03/07/22 06/23/23 06/21/23 Rx rosuvastatin 20 mg tablet 20 mg PO DAILY #30 tabs 03/07/22 06/23/23 06/21/23 Rx acetaminophen 650 mg 650 mg PO Q8H PRN Pain 03/04/23 06/23/23 06/16/23 History tablet,extended release tramadol 50 mg tablet 50 mg PO DAILY PRN pain 03/04/23 06/23/23 Unknown History nitrofurantoin 100 mg PO Q12H 5 days #10 caps 06/19/23 06/23/23 06/23/23 Rx monohydrate/macrocrystals 100 mg capsule (Macrobid) olmesartan 20 mg tablet 20 mg PO DAILY 06/23/23 06/23/23 06/21/23 History trazodone 50 mg tablet 50 mg PO QPM 06/23/23 06/23/23 06/22/23 History Allergies Allergy/AdvReac Type Severity Reaction Status Date / Time No Known Allergies Allergy Verified 06/24/23 05:54 PFSH Anesthesia Medical History Generalized weakness Pain of right hip Chronic radicular lumbar pain Coronary artery disease Hyperlipidemia Hypertension Surgical History Hx of lumbosacral spine surgery has metal plates in lower lumbar S/P CABG (coronary artery bypass graft) 2016 or 2017 Social History Smoking and tobacco/nicotine status: never used tobacco/nicotine Second hand smoke exposure: No Alcohol intake: never Substance/Drug Use: never Adopted: No Caregiver/support person: No Lives independently: Yes Marital status: / Data Anesthesia Cardiac Studies: No Data to Display
[2023-06-24] MEDS: ceFAZolin 2,000 MG in sodium chloride 0.9% (plus) 50 ML 100 MG IV (07:00)
[2023-06-24] MEDS: lidocaine-epi 1% 20 mL INJ INJECTION (07:39)
--- NOTE | 2023-06-24 08:36 | PM.OP ---
Operative Report Date of procedure: June 24, 2023 Pre-op diagnosis: Lumbar stenosis with neurogenic claudication Post-op diagnosis: same Procedure done: 1. L2-3 laminectomy with partial facetectomies 2. L3-4 laminectomy with partial facetectomy Surgeon: James Ocasio DO Estimated blood loss (mL): 10 Procedure: 1. L2-3 laminectomy with partial facetectomies 2. L3-4 laminectomy with partial facetectomy Patient is brought to the operative suite. After undergoing anesthesia they are placed in the prone position. All areas of impingement are well padded. Patient is then prepped and draped in the normal sterile fashion. A skin incision is made over the L2/3 level. This is confirmed under c-arm guidance. A series of dilators are passed and the tubular retractor is docked on the L2 lamina. A bovie is used to clear the soft tissue off the lamina and the L 2/3 facet joint. A high speed gabriella is then used to perform the laminectomy and take down the medial aspect of the L 2/3 facet joint. A kerrison rongeure was then used to take down the remaining lamina and smooth the edged of the laminectomy up to the point where the ligamentum flavum attaches. Attention was then brought to the medial aspect of the facet joint. The remaining medial aspect of the superior and inferior aspect of the facet joint were taken down with the kerrison from the pedicle of L2 to L 3. The facet joint had significant hypertrophy. Attention was then brought to the Ligamentum Flavum. The ligament was taken down from the lamina of L2 to L3 and out medially to the remaining facet joint. The ligament was thick. The dura was then exposed. The dura was in good repair. The L2 nerve was then traced with a curette out the L2/3 foramen and found to be adequately decompressed. The L3 nerve was traced with a curette around the L3 pedicle. The lateral recess was opened with a kerrison helping to further decompress the L3 nerve. The tubular retractor was then tilted to the contralateral side. The bovie was used to take down the soft tissue on the spinous process. The high speed gabriella was used to take down the spinous process and then the contralateral lamina of L2. The kerrison rongeur was used to take down the remaining lamina to the point where the ligamentum flavum attached and the ligamentum flavum was taken down from L2 to L3. The kerrison rongeur was then used to reach across and take down the medial aspect of the contralateral L2/3 facet joint.The currete was used to trace the contralateral L2 nerve out the L2/3 foramen to make sure it was decompressed adequatesly and the L3 was traced around the L3 pedicle. The lateral recess was opened further with the kerrison to ensure the L3 is adequately decompressed. Wound is then irrigated copiously with saline and surgiflo is used to stop any bleeding. The tubular retractor is removed and the wound is closed with vicryl and monocryl suture. Glue is then used to protect the wound. A sterile dressing is then placed. Patient was then placed in the supine position and transferred to the PACU in stable condition. A skin incision is made over the L3/4 level. This is confirmed under c-arm guidance. A series of dilators are passed and the tubular retractor is docked on the L3 lamina. A bovie is used to clear the soft tissue off the lamina and the L 3/4 facet joint. A high speed gabriella is then used to perform the laminectomy and take down the medial aspect of the L 3/4 facet joint. A kerrison rongeure was then used to take down the remaining lamina and smooth the edge of the laminectomy up to the point where the ligamentum flavum attaches. Attention was then brought to the medial aspect of the facet joint. The remaining medial aspect of the superior and inferior aspect of the facet joint were taken down with the kerrison from the pedicle of L3 to L 4. The facet joint had significant hypertrophy. Attention was then brought to the Ligamentum Flavum. The ligament was taken down from the lamina of L3 to L4 and out medially to the remaining facet joint. The ligament was thick. The dura was then exposed. The dura was in good repair. The L3 nerve was then traced with a curette out the L3/4 foramen and found to be adequately decompressed. The L4 nerve was traced with a curette around the L4 pedicle. The lateral recess was opened with a kerrison helping to further decompress the L4 nerve. Wound is then irrigated copiously with saline and surgiflo is used to stop any bleeding. The tubular retractor is removed and the wound is closed with vicryl and monocryl suture. Glue is then used to protect the wound. A sterile dressing is then placed. Patient was then placed in the supine position and transferred to the PACU in stable condition.
[2023-06-24] MEDS: HYDROcodone-acetaminophen 5-325 mg Tablet 1 TAB PO (09:20)
--- NOTE | 2023-06-24 09:45 | ANE.PACU2 ---
Inpatient post-anesthesia follow up: Airway intact: Yes Vital signs: Temperature 98 F Pulse Rate 63 Respiratory Rate 16 Blood Pressure 167/69 Pulse Oximetry 96 Oxygen Delivery Me thod Room Air Oxygen Flow Rate 6 Fraction of Inspir ed Oxygen Hydration adequate: Yes Nausea and vomiting: No Pain level: 1 Mental status: Baseline
== END 2023-06-24 09:45 | disposition home or self-care (01) ==
PROVIDERS: PCP Registered Nurse; Visit Provider Orthopaedic Surgery
PROC: (CPT 63005; principal; 2023-06-24 07:00)
DX: M48.062 Spinal stenosis, lumbar region with neurogenic claudication (principal); Z79.82 Long term (current) use of aspirin; E78.5 Hyperlipidemia, unspecified; I25.10 Atherosclerotic heart disease of native coronary artery without angina pectoris; I10 Essential (primary) hypertension
CPT/HCPCS: 63047; 63048; 72020; 76000; J0131; J0690; J1100; J2405; J2704; J2710; J3010; J3490; J7030

== ENCOUNTER → 2023-07-10 07:30 | Outpatient (BNVA) | payer MEDICARE, MEDICAID, SELFPAY | PROVIDERS: PCP Registered Nurse; Visit Provider Orthopaedic Surgery | DX: Z47.89 Encounter for other orthopedic aftercare | CPT/HCPCS: 99024 ==

== ENCOUNTER → 2023-08-06 07:55 | Outpatient (BNVA) | payer MEDICARE, MEDICAID, SELFPAY | PROVIDERS: PCP Registered Nurse; Visit Provider Orthopaedic Surgery | DX: Z98.890 Other specified postprocedural states (principal) | CPT/HCPCS: 99024 ==

== ENCOUNTER → 2023-09-15 07:40 | Outpatient (BNVA) | payer MEDICARE, MEDICAID, SELFPAY | PROVIDERS: PCP Registered Nurse; Visit Provider Orthopaedic Surgery | DX: Z98.890 Other specified postprocedural states (principal) | CPT/HCPCS: 99024 ==

== ENCOUNTER → 2024-05-19 11:45 | Outpatient (BNVA) | payer MEDICARE, MEDICAID, SELFPAY | PROVIDERS: PCP Registered Nurse; Visit Provider Registered Nurse | DX: E11.9 Type 2 diabetes mellitus without complications (principal) | CPT/HCPCS: 80048; 80061; 83036 ==

== ENCOUNTER → 2024-10-05 09:10 | Outpatient (BNVA) | payer MEDICARE, MEDICAID, SELFPAY | PROVIDERS: PCP Registered Nurse; Visit Provider Surgery | DX: K46.9 Unspecified abdominal hernia without obstruction or gangrene (principal) | CPT/HCPCS: 99204 ==

== ENCOUNTER 2024-10-18 12:23 | Outpatient (CLI) | payer MEDICARE, MEDICAID, SELFPAY ==
[2024-10-18] MEDS: iohexol 350 mg/mL 500 mL Btl (per mL) PO (13:32)
--- NOTE | 2024-10-18 14:30 | CT_ITS ---
WS: [id number] CT ABDOMEN PELVIS TECHNIQUE: Contrast-enhanced CT of the abdomen and pelvis with coronal and sagittal reformatted images. CLINICAL INFORMATION: hernia COMPARISON: None. DLP: 397.[address] scans at [facility] use at least one of these dose optimization techniques: automated exposure control; mA and/or kV adjustment per patient size (includes targeted exams where dose is matched to clinical indication); or iterative reconstruction. FINDINGS: [place] fat-containing LEFT ventral abdominal wall hernia. No herniated bowel. Hernia mouth measures approximately 3.0 cm with herniated omental fat. Tiny fat-containing umbilical hernia. Fatty liver. Normal portal vein and splenic vein. Normal spleen. Small esophageal hiatal hernia. Mild gastric rugal thickening with thickening of the duodenum compatible with gastroduodenitis. Lung bases are well aerated. Sternotomy. Pedicle screw fixation lumbar spine. Gallbladder is contracted. Splenic artery calcification. Fatty atrophy of the pancreas. Adrenal glands are normal. Normal renal parenchymal enhancement. No hydronephrosis. Small LEFT renal cyst. Moderate aortic atheromatous disease with vascular calcification. No aneurysm. Sigmoid diverticulosis. No evidence of acute diverticulitis. No free fluid in the abdomen or pelvis. CT/CT abdomen pelvis w con* [id number] IMPRESSION: 1. Fat-containing LEFT ventral abdominal wall hernia with hernia mouth measuri ng 3.0 cm. No herniated bowel. 2. Tiny fat-containing umbilical hernia. 3. Fatty liver. 4. Small esophageal hiatal hernia with evidence of gastritis and duodenitis. M ild thickening at the GE junction likely due to esophagitis but technically ind eterminate. This could further evaluated with endoscopy. 5. No other acute findings.
[2024-10-18 14:39] LABS: Blood Urea Nitrogen 14 mg/dL (8-23)
[2024-10-18] MEDS: iohexol 350 mg/mL 500 mL Btl (per mL) IV (14:45)
== END 2024-10-18 12:24 | disposition home or self-care (01) ==
LOC: RAD 12:25
PROVIDERS: PCP Registered Nurse; Visit Provider Surgery
DX: K46.9 Unspecified abdominal hernia without obstruction or gangrene (principal); K43.9 Ventral hernia without obstruction or gangrene; K76.0 Fatty (change of) liver, not elsewhere classified; K44.9 Diaphragmatic hernia without obstruction or gangrene; R93.5 Abnormal findings on diagnostic imaging of other abdominal regions, including retroperitoneum; Z98.890 Other specified postprocedural states; I70.8 Atherosclerosis of other arteries; K86.89 Other specified diseases of pancreas; N28.1 Cyst of kidney, acquired; I70.0 Atherosclerosis of aorta; K57.30 Diverticulosis of large intestine without perforation or abscess without bleeding
CPT/HCPCS: 74177; 82565; 84520

== ENCOUNTER → 2024-11-08 10:04 | Outpatient (BNVA) | payer MEDICARE, MEDICAID, SELFPAY | PROVIDERS: PCP Registered Nurse; Visit Provider Surgery | DX: Z09 Encounter for follow-up examination after completed treatment for conditions other than malignant neoplasm (principal) | CPT/HCPCS: 99213 ==

== ENCOUNTER → 2025-03-08 08:19 | Outpatient (BNVA) | payer MEDICARE, MEDICAID, SELFPAY | PROVIDERS: PCP Registered Nurse; Visit Provider Nurse Practitioner Family | DX: I10 Essential (primary) hypertension (principal); E78.2 Mixed hyperlipidemia; E11.9 Type 2 diabetes mellitus without complications; R53.1 Weakness; I65.23 Occlusion and stenosis of bilateral carotid arteries | CPT/HCPCS: 80053; 80061; 82607; 83036; 83735; 84443; 85025 ==